=== PATIENT | male | born 1995 | race African-American/Black ===

== ENCOUNTER 2021-02-05 22:31 | Emergency (ER) | payer SELFPAY ==
[~2021-02-05] VITALS: Ht 190.5 cm; Wt 90.7 kg
[2021-02-05 22:35] VITALS: BP_SYST 141
--- NOTE | 2021-02-05 22:35 | NUR ---
Patient triaged and placed in waiting room. VSS and patient appears in no acute distress at this time. awaiting available bed, and MD notified of need for MSE.
[2021-02-05 23:16] LABS: BILIRUBIN,URINE NEGATIVE (NEGATIVE); BLOOD, URINE NEGATIVE (NEGATIVE); CLARITY/URINE CLEAR (CLEAR); COLOR,URINE YELLOW (YELLOW); GLUCOSE,URINE NEGATIVE (NEGATIVE); KETONES,URINE NEGATIVE (NEGATIVE); LEUKOCYTE ESTERASE ,URINE NEGATIVE (NEGATIVE); NITRITE, URINE NEGATIVE (NEGATIVE); PH,URINE 6.5 (5.0-8.0); PROTEIN URINE NEGATIVE (NEGATIVE); UROBILINOGEN,URINE 0.2 (0.2-1.0)
--- NOTE | 2021-02-06 01:32 | NUR ---
ER examining patient in the traige room.
[2021-02-06] MEDS ORDERED: cefTRIAXone 250 MG VIAL IM ONE (01:45)
[2021-02-06] MEDS ORDERED: AZITHROMYCIN 250 MG TABLET PO ONE (01:45)
[2021-02-06] MEDS ORDERED: LIDOCAINE 1% 10 MG/ML, 20 ML MDV INJ ONE (02:00)
--- NOTE | 2021-02-06 02:12 | NUR ---
MEDICATED PT ORDERED BY DR LYLE.
--- NOTE | 2021-02-06 02:35 | NUR ---
NO REACTION NOTED TO THE MEDICATION.DR LYLE NOTIFIED.
--- NOTE | 2021-02-06 02:36 | NUR ---
Patient given written and verbal discharge instructions and verbalizes understanding. ER MD discussed with patient the results and treatment provided. Patient in stable condition. ID arm band removed. NO Rx of given. Patient educated on pain management and to follow up with PMD. Pain Scale 0/10. Opportunity for questions provided and answered. Medication side effect fact sheet provided.
[2021-02-06 02:37] VITALS: BP_SYST 132
== END 2021-02-06 02:37 | disposition home or self-care (01) ==
LOC: SED 22:31
DX: Z11.3 Encounter for screening for infections with a predominantly sexual mode of transmission (principal); J45.909 Unspecified asthma, uncomplicated
CPT/HCPCS: 36415; 81003; 86694; 87491; 87591; 96372; 99283; J0696; J2001; Q0144